=== PATIENT | male | born 1970 | race Caucasian/White ===

== ENCOUNTER 2020-11-22 11:58 | Day surgery (SDC) | payer OTHER ==
[~2020-11-22] VITALS: Ht 193 cm; Wt 97.7 kg
--- NOTE | ~2020-11-22 | OR ---
[facility] [address] [place], [place] [address] Draft DATE OF OPERATION: 11/22/2020 SURGEON: Oscar Lees MD PREOPERATIVE DIAGNOSIS: Colon screening. POSTOPERATIVE DIAGNOSIS: Polyps x4 (rectum, sigmoid, right colon, and proximal right colon). PROCEDURE: Total colonoscopy to cecum with cold snare polypectomy x2 and cold morcellation polypectomy x2. ANESTHESIA: Intravenous sedation, fentanyl 150 mcg and versed 7 mg. INDICATION: This 50-year-old white man is a patient of Kennedy Forrest is referred for screening colonoscopy. He does have family history of colon cancer in his grandfather. He understands risks of bleeding, infection, and perforation related to screening colonoscopy and wished to proceed. Notably, he is asymptomatic. FINDINGS: The prep was good. Complete colonoscopy was undertaken of the cecum. Four polyps in total were excised, all of them were adenomatous. One was in the proximal ascending colon. The other in the mid ascending, one in the sigmoid, one in the rectum. DESCRIPTION OF PROCEDURE: The patient was brought to the endoscopy suite and placed in lateral decubitus position, given intravenous sedation to the point of slurred speech and nystagmus. Digital rectal examination was normal. An Olympus video colonoscope was passed in the rectum and manipulated throughout the colon ultimately intubating the cecum. The scope was withdrawn and the proximal ascending colon was a small polyp, this was excised with cold morcellation technique. Further withdrawal showed another similar polyp in the mid ascending colon, also excised with cold morcellation technique. Careful withdrawal of scope showed no abnormality until approximately the mid sigmoid where an enlarged polyp, which was clearly adenomatous based on its characteristics was noted. This was about 8 mm in size. It PATIENT NAME: YOLY WANG OPERATIVE REPORT DATE OF : 70 REPORT #: [id number] PHYSICIAN: OSCAR LEES MD PCP: OIB MAE [facility] REPORT IS CONFIDENTIAL AND NOT TO BE RELEASED WITHOUT AUTHORIZATION [facility] [address] [place], [place] [address] Draft was excised with cold snare technique. The scope was carefully withdrawn and another polyp in the mid rectum noted, similarly excised with cold snare technique. Retroflexed view was undertaken showing no other abnormalities. The scope was removed and the patient was taken to the recovery room in good condition. CONCLUDING DIAGNOSIS: Polyps x4. PLAN: Recommend repeat colonoscopy in 3 years sooner if clinically indicated. He will return to the ongoing care of CHEYENNE Kraus. MD ALBARO Frazier/JACQUELINE /[id number] cc: CHEYENNE Kraus Copies: ~ PATIENT NAME: YOLY WANG OPERATIVE REPORT DATE OF : 70 REPORT #: [id number] PHYSICIAN: OSCAR LEES MD PCP: OBI MAE PAC REPORT IS CONFIDENTIAL AND NOT TO BE RELEASED WITHOUT AUTHORIZATION
[~2020-11-22 11:58] MED LIST: FISH OIL 1,0001 EAC2; FLUTICASONE PROP5 GM; MONTELUKAST SOD10 MG
[2020-11-22] MEDS ORDERED: TURMERIC500 M2 PO (12:23)
--- NOTE | 2020-11-22 16:15 | NUR ---
11/22/20 1615 Carrie Wu 1546 PT ARRIVED IN PACU SLEEPY WITH NO C/O'S. ABD SOFT. 1600 DR AT BEDSIDE TALKING TO PT. 1615 SITTING UP IN BED. FALLS ASLEEP WHEN NOT VERBALLY STIMULATED.
--- NOTE | 2020-11-24 10:47 | PATH ---
[facility] [address] [place], [place] [address] Signed SPECIMEN(S): A ASCENDING COLON POLYP SPECIMEN(S): B ASCENDING MID RIGHT COLON POLYP SPECIMEN(S): C SIGMOID POLYP AT 20 CM SPECIMEN(S): D RECTAL POLYP SPECIMEN SOURCE: A. ASCENDING COLON POLYP B. ASCENDING MID RIGHT COLON POLYP C. SIGMOID POLYP AT 20 CM D. RECTAL POLYP CLINICAL HISTORY: Screening, family hx colon CA. MICROSCOPIC DESCRIPTION: Histologic sections of all submitted blocks are examined by light microscopy. These findings, together with the gross examination, support the pathologic diagnosis. FINAL PATHOLOGIC DIAGNOSIS: A. Colon, ascending, polyp, polypectomy: - Fragments of tubular adenoma. - Negative for high-grade dysplasia or malignancy. B. Colon, ascending mid right polyp, polypectomy: - Fragments of tubular adenoma. - Negative for high-grade dysplasia or malignancy. C. Colon, sigmoid, polyp at 20 cm, polypectomy: - Tubular adenoma. - Negative for [id number] dysplasia or malignancy. D. Rectum, polyp, polypectomy: - Tubular adenoma. - Negative for high-grade dysplasia or malignancy. NAL:cml:C2NR GROSS DESCRIPTION: Four specimens are received in four containers, labeled "JH." A. The specimen, labeled "JH, one," and designated on the requisition "ascending/right polypectomy," is received in formalin and consists of three lopez soft tissue fragment(s) that measure 0.2-0.5 cm in greatest dimension. The specimen is entirely submitted in cassette (A1). B. The specimen, labeled "JH, 2," and designated on the requisition "ascending/right polypectomy, mid," is received in formalin and consists of PATIENT NAME: YOLY WANG PATHOLOGY DATE OF : 70 REPORT #: [id number] PHYSICIAN: DEMIAN NELSON PCP: OBI MAE PAC REPORT IS CONFIDENTIAL AND NOT TO BE RELEASED WITHOUT AUTHORIZATION [facility] [address] [place], [place] [address] Signed five lopez soft tissue fragment(s) that measure 0.1 up to 0.4 cm in greatest dimension. The specimen is entirely submitted in cassette (B1). C. The specimen, labeled "JH, 3," and designated on the requisition "sigmoid polypectomy, 20," is received in formalin and consists of four lopez soft tissue fragment(s) that measure 0.2 up to 0.8 cm in greatest dimension. The specimen is entirely submitted in cassette (C1). D. The specimen, labeled "JH, 4," and designated on the requisition "rectum polypectomy," is received in formalin and consists of one polypoid irregularly-shaped, lopez soft tissue fragment(s) that measure 1.3 cm in greatest dimension. The specimen is entirely submitted in cassette (D1). AI(under the direct supervision of a pathologist) The Gross Description was prepared using a voice recognition system. The report was reviewed for accuracy; however, sound-alike word errors, addition and/or deletions may occur. If there is any question about this report, please contact Client Services. PERFORMING LABORATORY: The technical component was performed by [facility], [address] [place] [id number] (Vmware Administrator: Lina Mckinney MD; CLIA# [id number]). Professional interpretation was performed by [facility], [address] [address] (CLIA# [id number]). Diagnostician: Herminia Sellers MD Pathologist Electronically Signed 11/24/2020 Copies: ~ PATIENT NAME: YOLY WANG TAHIRA PATHOLOGY DATE OF : 70 REPORT #: [id number] PHYSICIAN: DEMIAN NELSON PCP: OBI MAE PAC REPORT IS CONFIDENTIAL AND NOT TO BE RELEASED WITHOUT AUTHORIZATION
== END 2020-11-22 16:40 | disposition home or self-care (01) ==
LOC: OPS 11:58 → DS 12:02 → OPS 13:00 → DS 14:00 → OPS 16:40
PROVIDERS: ATTEND Surgery
PROC: 0DBK8ZZ Excision of Ascending Colon, Via Natural or Artificial Opening Endoscopic (ICD-10-PCS; principal; 2020-11-22 13:00)
DX: Z12.11 Encounter for screening for malignant neoplasm of colon (principal); D12.7 Benign neoplasm of rectosigmoid junction; D12.2 Benign neoplasm of ascending colon; Z80.0 Family history of malignant neoplasm of digestive organs
CPT/HCPCS: 99153; G0500; J2250; J3010

== ENCOUNTER 2025-06-07 07:10 | Day surgery (SDC) | payer OTHER ==
[~2025-06-07] VITALS: Ht 193 cm; Wt 104.5 kg
[~2025-06-07 07:10] MED LIST changes: +BEET ROOT500 MG PO; +CEPHALEXIN500 M1 PO; +FLUTICASONE PRO16 GM NAS; +HYDROCODON-ACE1 EA10 PO; +IBLOOD GLUCOSE TEST STRIP 1 EA TEST VI PRN; +LACTATED RINGER'S 1,000 ML IV SCH; +LIDOCAINE HCL 1% 5 ML SDV INJ ONE; +MIDAZOLAM HCL 5 MG/5 ML VIAL IV PRN; +TURMERIC500 M2 PO; +TURMERIC500 M3 PO; +fentaNYL citrate 100 MCG/2 ML VIAL IV PRN
[2025-06-07 07:31] VITALS: BP 119/87
--- NOTE | 2025-06-07 07:35 | NUR ---
VISITED DURING SPIRITUAL CARE ROUNDS. PT IN OVERALL GOOD SPIRITS; NO IMMEDIATE NEEDS. LIME [employer] WORKER HELPER PROVIDED SUPPORTIVE PRESENCE, PRAYER, FACILITATED INTERACTION WITH THERAPY ANIMAL. PT EXPRESSED GRATITUDE, HUMOR.
[2025-06-07] MEDS ORDERED: TYLENOL EXTRA500 MG PO (07:36)
[2025-06-07] MEDS ORDERED: MIDAZOLAM HCL 5 MG/5 ML VIAL ONE (08:17)
[2025-06-07] MEDS ORDERED: fentaNYL citrate 100 MCG/2 ML VIAL ONE (08:17)
--- NOTE | 2025-06-07 09:17 | NUR ---
06/07/25 0917 Angela Philip 0905- PT PRESENTS TO PACU, LEFT LATERAL POSITION, DROWSY BUT OPENS EYES OFF AND ON. ABD SOFT, NON DISTENDED, ENCOURAGED TO PASS GAS, REORIENTED TO TIME AND PLACE. LR INFUSING TO RFA IV, BREATHING EVEN AND NON LABORED ON ROOM AIR. ALL MONITORS IN PLACE. 0915- PT RESTING OFF AND ON, NO SIGNS OF DISTRESS.
[2025-06-07 09:51] VITALS: BP 118/91
[2025-06-08 04:44] LABS: PARATHYROID HORMONE,INTACT 49 pg/mL (15-65)
--- NOTE | 2025-06-09 16:05 | PATH ---
[facility] [address] [facility] [place] [address] Signed SPECIMEN(S): A SIGMOID POLYP SPECIMEN SOURCE: A. SIGMOID POLYP CLINICAL HISTORY: Personal history of colon polyps 2020, family history of colon cancer. FINAL PATHOLOGIC DIAGNOSIS: Colon, sigmoid, polypectomy: - Tubular adenoma [facility] MICROSCOPIC EXAMINATION: Histologic sections of all submitted blocks are examined by light microscopy. These findings, together with the gross examination, support the pathologic diagnosis. GROSS DESCRIPTION: The specimen, labeled and designated "Tate sigmoid polyp," is received in formalin and consists of one fragment of soft lopez tissue that is up to 0.6 cm in greatest dimension. Entirely submitted in (A1). TAP (under the direct supervision of a pathologist) The Gross Description was prepared using a voice recognition system. The report was reviewed for accuracy; however, sound-alike word errors, addition and/or deletions may occur. If there is any question about this report, please contact Client Services. ADDITIONAL NOTES: Immunohistochemical and/or in situ hybridization studies if performed in this case included appropriate positive controls that reacted as expected. This test was developed and its performance characteristics determined by [facility]. It has not been cleared or approved by the U.S. Food and Drug Administration. The FDA has determined that such clearance or approval is not necessary. This test is used for clinical purposes. It should not be regarded as investigational or for research. [facility] is certified under the Clinical Laboratory Improvement Amendments of 1988 (CLIA) as qualified to perform high complexity clinical laboratory testing. PATIENT NAME: YOLY WANG PATHOLOGY DATE OF : 70 REPORT #: [id number] PHYSICIAN: DEMIAN NELSON PCP: HAL SIERRA PA-C REPORT IS CONFIDENTIAL AND NOT TO BE RELEASED WITHOUT AUTHORIZATION [facility] [address] [facility] [place] [address] Signed PERFORMING LABORATORY: Technical preparation was performed by [facility], [address] [place] [address] (CLIA#: [id number]). Professional interpretation was performed by [facility], [address] [place] [phone] (CLIA#: [id number]). Diagnostician: Max Hector DO Pathologist Electronically Signed 06/09/2025 Copies: ~ PATIENT NAME: YOLY WANG PATHOLOGY DATE OF : 70 REPORT #: [id number] PHYSICIAN: DEMIAN NELSON PCP: HAL SIERRA PA-C REPORT IS CONFIDENTIAL AND NOT TO BE RELEASED WITHOUT AUTHORIZATION
--- NOTE | 2025-06-13 13:51 | OR ---
[facility] [address] [place], [place] [address] Signed DATE OF OPERATION: 06/07/2025 SURGEON: Oscar Lees MD PREOPERATIVE DIAGNOSES: 1. History of colon polyps. 2. Family history of colon cancer (grandfather). POSTOPERATIVE DIAGNOSIS: Single small sessile polyp at sigmoid (excised). PROCEDURE: Total colonoscopy to cecum with cold snare polyp polypectomy x1. ANESTHESIA: Intravenous sedation fentanyl 100 mcg and Versed 4 mg. INDICATION: This 54-year-old white man is patient of Keith Sierra PA-C. He has undergone colonoscopy by me in the past in 2020, which he was found to have four polyps excised including two in the right colon one in the sigmoid and another in the rectum. He does have a grandfather with colon cancer history, but no other family members with the same. Surgical history does include nephrolithiasis management; indeed, today he says he is having another kidney stone. He is admitted at this time to undergo colonoscopy to better care in followup from prior multiple colon polyps in 2020. He understands risk of bleeding, infection, and perforation and wished to proceed. He is currently symptom free. FINDINGS: The prep was good. Complete colonoscopy was undertaken of the cecum. There was a slightly pedunculated polyp in the sigmoid, which was excised with cold snare technique. The remaining colon was normal. DESCRIPTION OF PROCEDURE: The patient was brought to the endoscopy suite and placed in lateral decubitus position, given intravenous sedation to the point of slurred speech and nystagmus. Digital rectal examination was normal. An Olympus video colonoscope was passed in the rectum and manipulated throughout the colon ultimately intubating the cecum itself. The ileocecal valve and appendiceal Electronically Signed By: OSCAR LEES MD 06/13/25 1351 PATIENT NAME: YOLY WANG OPERATIVE REPORT DATE OF : 70 REPORT #: [id number] PHYSICIAN: OSCAR LEES MD PCP: KEITH SIERRA PA-C REPORT IS CONFIDENTIAL AND NOT TO BE RELEASED WITHOUT AUTHORIZATION [facility] [address] [place], [place] [address] Signed orifice were normal. Scope was withdrawn from that point. Examination showed no sign of abnormality until the sigmoid where a small slightly pedunculated adenomatous polyp was noted. It was less than a cm in size. It was excised with cold snare technique and passed for pathology. Further withdrawal showed no other abnormality. Scope was removed. The patient was taken to recovery room in good condition. CONCLUDING DIAGNOSIS: Polyps x1. PLAN: Recommend repeat colonoscopy in 7 to 10 years, sooner if symptoms should develop. He will return to the ongoing care of Keith Sierra PA-C. MD ALBARO Frazier/JACQUELINE /[id number] cc: Keith Sierra PA-C Copies: ~ Electronically Signed By: OSCAR LEES MD 06/13/25 1351 PATIENT NAME: YOLY WANG OPERATIVE REPORT DATE OF : 70 REPORT #: [id number] PHYSICIAN: OSCAR LEES MD PCP: KEITH SIERRA PA-C REPORT IS CONFIDENTIAL AND NOT TO BE RELEASED WITHOUT AUTHORIZATION
== END 2025-06-07 09:53 | disposition home or self-care (01) ==
LOC: DS 07:10
PROVIDERS: ATTEND Surgery
PROC: 0DBN8ZZ Excision of Sigmoid Colon, Via Natural or Artificial Opening Endoscopic (ICD-10-PCS; principal; 2025-06-07 08:30)
DX: Z12.11 Encounter for screening for malignant neoplasm of colon (principal); D12.5 Benign neoplasm of sigmoid colon; Z86.0100 Personal history of colon polyps, unspecified; Z80.0 Family history of malignant neoplasm of digestive organs
CPT/HCPCS: 36415; 82310; 83970; 99153; G0500; J2250; J3010; J7121